=== PATIENT | male | born 2005 | race Caucasian/White ===

== ENCOUNTER 2025-02-21 18:19 | Emergency (ER) | payer MEDICAID, SELFPAY ==
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
[2025-02-21 20:04] VITALS: BP 137/84; PULSE 80; RESP 18; TEMP 37.1; O2SAT 99; BMI 28.0
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
== END 2025-02-21 22:29 | disposition home or self-care (01) ==
PROVIDERS: Emergency Provider Emergency Medicine; PCP Family Medicine
DX: S80.211A Abrasion, right knee, initial encounter (principal); L03.115 Cellulitis of right lower limb; W17.89XA Other fall from one level to another, initial encounter; Y93.55 Activity, bike riding
CPT/HCPCS: 73562; 96372; 99283; J0696; J3490